=== PATIENT | female | born 1990 ===

== ENCOUNTER 2018-10-02 15:32 | Emergency (ER) | payer OTHER ==
[2018-10-02 15:36] VITALS: BMI 24.2
[2018-10-02 15:39] VITALS: RESP 20; O2SAT 100
[2018-10-02] MEDS ORDERED: Sodium Chloride 0.9% 1,000 ML IV ONE (16:12)
[2018-10-02 16:30] LABS: BASO % 0.4 % (0.0-2.0); EOS # 0.3 K/uL (0.0-0.7); EOS % 3.7 % (0.0-4.0); HEMOGLOBIN 12.4 g/dL (11.0-16.0); LYMPH # 1.5 K/uL (1.0-4.3); LYMPH % 21.1 % (20.0-40.0); MEAN CELL VOLUME 85.3 fL (81.0-99.0); MEAN CORPUSCULAR HEMOGLOBIN 29.8 pg (27.0-31.0); MEAN CORPUSCULAR HGB CONC 34.9 g/dL (33.0-37.0); MEAN PLATELET VOLUME 9.6 fL (7.2-11.7); MONO # 0.5 K/uL (0.0-0.8); NEUT # 4.9 K/uL (1.8-7.0); NEUT % 67.8 % (50.0-75.0); RBC 4.16 Mil/uL (3.80-5.20); RED CELL DISTRIBUTION WIDTH 12.8 % (11.5-14.5); WHITE BLOOD COUNT 7.2 K/uL (4.8-10.8)
[2018-10-02] MEDS ORDERED: Sodium Chloride 0.9% 1,000 ML ONE (16:40)
[2018-10-02 16:43] LABS: SQUAMOUS EPITHIAL 1 /hpf (0-5); URINE BACTERIA MOD (<OCC); URINE BILIRUBIN NEGATIVE (NEGATIVE); URINE BLOOD NEGATIVE (NEGATIVE); URINE CLARITY Clear (Clear); URINE COLOR Yellow (YELLOW); URINE GLUCOSE (UA) NORMAL (Normal); URINE LEUKOCYTE ESTERASE NEG Leu/uL (Negative); URINE PROTEIN NEGATIVE (NEGATIVE); URINE UROBILINOGEN NORMAL mg/dL (0.2-1.0)
[2018-10-02 16:45] LABS: ALB/GLOB RATIO 1.5 (1.0-2.1); ALBUMIN 4.5 g/dL (3.5-5.0); ALT/SGPT 36 U/L (9-52); AST/SGOT 37 U/L (14-36); BLOOD UREA NITROGEN 5 mg/dL (7-17); CALCIUM 9.5 mg/dl (8.6-10.4); GFR NON-AFRICAN AMERICAN > 60
[2018-10-02 17:36] VITALS: BP 106/68; PULSE 78; TEMP 99.1
--- NOTE | 2018-10-02 17:45 | US ---
Date of service: 10/02/2018 PROCEDURE: OB Pelvic Ultrasound HISTORY: PELVIC PAIN, BLEEDING, LMP: 06/19/2018 COMPARISON: None available. FINDINGS: UTERUS: Gestational sac: Single live intrauterine gestation. Yolk sac is visualized. CRL measures 6.52 cm corresponding to 12 weeks and 6 days of gestational age. Heart rate: 152 bpm. age (Ultrasound estimated): 12 weeks and 6 days Corrie-gestational hemorrhage: None. Date of delivery (Ultrasound estimated) : 04/10/2019 Uterus measures 13.2 x 8.2 x 7.1 cm. Normal in size and appearance. Placenta is posterior and covers the internal os. CERVIX: Measures 4.2 cm. Long and closed. No cervical abnormality seen. RIGHT OVARY: Measures 3.0 x 2.1 x 2.6 cm. No mass lesion. Normal flow. LEFT OVARY: Measures 3.3 x 2.2 x 2.7 cm. No solid mass. Normal flow. FREE FLUID: None. OTHER FINDINGS: None. IMPRESSION: Single live intrauterine gestation with mean gestational age of 12 weeks and 6 days. The estimated date of delivery by ultrasound is 04/10/2019. Placenta is posterior and covers the internal os. Clinical follow-up is advised.
--- NOTE | 2018-10-02 18:07 | C.PDOC ---
History Of Present Illness 28 year old female presents to the ED c/o pelvic pain and vaginal spotting that began 2 days ago. 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 Patient also reports nausea and vomiting throughout her first trimester. She denies dysuria, fever, diarrhea, CP, SOB. Time Seen by Provider: 10/02/18 15:55 Chief Complaint (Nursing): Abdominal Pain History Per: Patient History/Exam Limitations: no limitations Onset/Duration Of Symptoms: Days (2) Current Symptoms Are (Timing): Still Present Severity: Mild Quality Of Discomfort: "Pain" Associated Symptoms: Nausea, Vomiting. denies: Fever, Chest Pain, Urinary Symptoms Recent travel outside of the [place]: No Additional History Per: Patient Abnormal Vaginal Bleeding: Yes Past Medical History Reviewed: Historical Data, Nursing Documentation, Vital Signs Vital Signs: Last Vital Signs Temp 99.1 F 10/02/18 17:35 Pulse 78 10/02/18 17:35 Resp 20 10/02/18 17:35 BP 106/68 10/02/18 17:35 Pulse Ox 100 10/02/18 17:35 - Medical History PMH: No Chronic Diseases Surgical History: Appendectomy Family History: States: No Known Family Hx - Social History Hx Alcohol Use: No Hx Substance Use: No Review Of Systems Constitutional: Negative for: Fever Cardiovascular: Negative for: Chest Pain, Palpitations Respiratory: Negative for: Shortness of Breath Gastrointestinal: Positive for: Nausea, Vomiting, Abdominal Pain. Negative for: Diarrhea Genitourinary: Positive for: Vaginal Bleeding, Pelvic Pain. Negative for: Dysuria Skin: Negative for: Rash Physical Exam - Physical Exam Appears: Well, Non-toxic, No Acute Distress Skin: Warm, Dry Head: Normacephalic Oral Mucosa: Moist Neck: Supple Cardiovascular: Rhythm Regular Respiratory: Normal Breath Sounds, No Rales, No Rhonchi, No Wheezing Gastrointestinal/Abdominal: Bowel Sounds, Soft, Tenderness (gravid, (+) mild suprapubic tenderness ), No Distention, No Guarding, No Rebound, Other ((-) Ramos's, (-) McBurney's ) Back: Normal Inspection, No CVA Tenderness Extremity: No Pedal Edema Neurological/Psych: Oriented x3 ED Course And Treatment - Laboratory Results Result Diagrams: 10/02/18 16:26 10/02/18 16:26 Lab Results: Total Bilirubin 0.4 mg/dL (0.2-1.3) 10/02/18 16:26 AST 37 U/L (14-36) H 10/02/18 16:26 ALT 36 U/L (9-52) 10/02/18 16:26 Alkaline Phosphatase 53 U/L (38-126) 10/02/18 16:26 Total Protein 7.4 g/dL (6.3-8.3) 10/02/18 16:26 Albumin 4.5 g/dL (3.5-5.0) 10/02/18 16:26 Globulin 3.0 gm/dL (2.2-3.9) 10/02/18 16: Albumin/Globulin Ratio 1.5 (1.0-2.1) 10/02/18 16:26 Urine Color Yellow (YELLOW) 10/02/18 16:26 Urine Clarity Clear (Clear) 10/02/18 16:26 Urine pH 7.0 (5.0-8.0) 10/02/18 16:26 Ur Specific [place] 1.003 (1.003-1.030) 10/02/18 16:26 Urine Protein Negative mg/dL (NEGATIVE) 10/02/18 16:26 Urine Glucose (UA) Normal mg/dL (Normal) 10/02/18 16:26 Urine Ketones Negative mg/dL (NEGATIVE) 10/02/18 16:26 Urine Blood Negative (NEGATIVE) 10/02/18 16:26 Urine Nitrate Negative (NEGATIVE) 10/02/18 16:26 Urine Bilirubin Negative (NEGATIVE) 10/02/18 16:26 Urine Urobilinogen Normal mg/dL (0.2-1.0) 10/02/18 16:26 Ur Leukocyte Esterase Neg Rehana/uL (Negative) 10/02/18 16:26 Urine WBC (Auto) 1 /hpf (0-5) 10/02/18 16:26 Urine RBC (Auto) < 1 /hpf (0-3) 10/02/18 16:26 Ur Squamous Epith Cells 1 /hpf (0-5) 10/02/18 16:26 Urine Bacteria Mod (<OCC) H 10/02/18 16:26 Beta HCG, Quant 58005.00 mIU/ML 10/02/18 16:26 O2 Sat by Pulse Oximetry: 100 (on RA) Pulse Ox Interpretation: Normal - CT Scan/US US Other Rad Studies (CT/US): Read By Radiologist, Radiology Report Reviewed CT/US Interpretation: Date of service: 10/02/2018. PROCEDURE: OB Pelvic Ultrasound. HISTORY: PELVIC PAIN, BLEEDING, . LMP: 06/19/2018. COMPARISON: None available. FINDINGS: UTERUS: Gestational sac: Single live intrauterine gestation. Yolk sac is visualized. CRL measures 6.52 cm corresponding to 12 weeks and 6 days of gestational age. Heart rate: 152 bpm. age (Ultrasound estimated): 12 weeks and 6 days. Corrie-gestational hemorrhage: None. Date of delivery (Ultrasound estimated) : 04/10/2019. Uterus measures 13.2 x 8.2 x 7.1 cm. Normal in size and appearance. Placenta is posterior and covers the internal os. CERVIX: Measures 4.2 cm. Long and closed. No cervical abnormality seen. RIGHT OVARY: Measures 3.0 x 2.1 x 2.6 cm. No mass lesion. Normal flow. LEFT OVARY: Measures 3.3 x 2.2 x 2.7 cm. No solid mass. Normal flow. FREE FLUID: None. OTHER FINDINGS: None. IMPRESSION: Single live intrauterine gestation with mean gestational age of 12 weeks and 6 days. The estimated date of delivery by ultrasound is 04/10/2019. Placenta is posterior and covers the internal os. Clinical follow-up is advised. Progress Note: Blood work, UA, transvaginal US ordered and reviewed. Patient given IV NS bolus. Reevaluation Time: 18:10 Reassessment Condition: Improved (On reassessment, patient is resting comfortably, in no current pain/distress. On exam, abdomen is soft and nontender. US shows placenta covering internal Os (i.e. placenta previa). UA (+) for moderate bacteria. Patient given Rxs for Macrobid, zofran ODT. 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 RETURN TO EMERGENCY ROOM IF YOU HAVE ANY WORSENING SYMPTOMS SEGUIR CON [facility] OB / BUFF WHEEL FABRICATOR [address] DE [facility] SI [place] QUE SE HACEN [place] Prescriptions: Nitrofurantoin Macrocrystals [Macrobid] 1 cap PO BID #14 cap Ondansetron ODT [Zofran ODT] 1 odt PO BID PRN #15 odt PRN Reason: Nausea/Vomiting Instructions: Placenta Previa, Urinary Tract Infection, Adult (DC), Bleeding With (DC) Forms: [facility] (Polish) Print Language: DANISH - Clinical Impression Clinical Impression: Bleeding in early , UTI in , Placenta previa - Scribe Statement The provider has reviewed the documentation as recorded by the Mateo Fischer All medical record entries made by the Scribe were at my direction and personally dictated by me. I have reviewed the chart and agree that the record accurately reflects my personal performance of the history, physical exam, medical decision making, and the department course for this patient. I have also personally directed, reviewed, and agree with the discharge instructions and disposition.
== END 2018-10-02 18:24 | disposition home or self-care (01) ==
LOC: C.ER 15:32
DX: O44.01 Complete placenta previa NOS or without hemorrhage, first trimester (principal); O23.41 Unspecified infection of urinary tract in pregnancy, first trimester; O20.9 Hemorrhage in early pregnancy, unspecified; Z3A.12 12 weeks gestation of pregnancy
CPT/HCPCS: 76801; 80053; 81001; 84702; 85025; 86850; 86900; 96360; 99283; J7030